=== PATIENT | male | born 1990 ===

== ENCOUNTER 2022-08-08 10:49 | Outpatient (CLI) | payer OTHER, SELFPAY | END 2022-08-08 10:50 | disposition home or self-care (01) | LOC: ANHAUDIO 10:50 | PROVIDERS: Visit Provider Family Medicine | DX: F84.0 Autistic disorder (principal) | CPT/HCPCS: 99199 ==

== ENCOUNTER 2022-10-10 10:57 | Outpatient (CLI) | payer OTHER, SELFPAY | END 2022-10-10 10:58 | disposition home or self-care (01) | LOC: ANHAUDIO 10:59 | PROVIDERS: PCP Physician Assistant; Visit Provider Physician Assistant | DX: Z00.00 Encounter for general adult medical examination without abnormal findings (principal); Z13.1 Encounter for screening for diabetes mellitus; Z13.220 Encounter for screening for lipoid disorders; Z79.899 Other long term (current) drug therapy; Z13.29 Encounter for screening for other suspected endocrine disorder | CPT/HCPCS: 92555; 92567; 92587 ==

== ENCOUNTER 2023-12-12 09:52 | Outpatient (CLI) | payer OTHER, SELFPAY | END 2023-12-12 09:53 | disposition home or self-care (01) | LOC: ANHAUDIO 09:55 | PROVIDERS: PCP Physician Assistant | DX: H91.93 Unspecified hearing loss, bilateral (principal) | CPT/HCPCS: 92555; 92567; 92587 ==